=== PATIENT | male | born 1980 | race African-American/Black ===

== ENCOUNTER 2021-01-14 17:20 | Inpatient (IN) | payer OTHER, SELFPAY ==
[2021-01-14] MEDS ORDERED: HYDROmorphone 0.5 MG/0.5 ML SYRINGE ONE ×2 (17:49→17:50)
[2021-01-14] MEDS ORDERED: diphenhydrAMINE 50 MG/ML VIAL ONE (17:49)
[2021-01-14] MEDS ORDERED: Ondansetron PF 4 MG/2 ML Vial ONE ×2 (17:49→17:53)
[2021-01-14 18:51] LABS: ALT (SGPT) 17 U/L (8-55); AST (SGOT) 22 U/L (5-34); Albumin 3.9 g/dL (3.5-5.0); Alkaline Phosphatase 125 U/L (40-110); Anion Gap 15 mmol/L (10-20); BUN (Urea Nitrogen) 11 mg/dL (8.9-20.6); Bilirubin, Total 5.3 mg/dL (0.2-1.2); Calc. Creatinine Clearance 0 mL/min (70-130); Calcium 8.9 mg/dL (7.8-10.44); Carbon Dioxide 23 mmol/L (22-29); Chloride 97 mmol/L (98-107); Globulin 5.1 g/dL (2.4-3.5); Glucose 248 mg/dL (70-105); Potassium 3.2 mmol/L (3.5-5.1); Sodium 132 mmol/L (136-145)
[2021-01-14 18:52] LABS: Hemoglobin 11.1 g/dL (13.5-17.5); Mean Corpuscular HGB CONC 34.6 g/dL (32.0-36.0); Mean Corpuscular Hemoglobin 29.2 pg (27.0-33.0); Mean Corpuscular Volume 84.5 fl (81.2-95.1); Mean Platelet Volume 9.5 fl (7.4-10.4); Platelet Count 339 10x3/uL (150-450); RBC Distribution Width 16.8 % (11.5-14.5); White Blood Cell (WBC) Count 31.4 10x3/uL (3.5-10.5)
[2021-01-14] MEDS ORDERED: cefTRIAXone\\ROCEPHIN 2 GM VIAL ONE (19:05)
[2021-01-14 19:09] LABS: Band 1 % (5-11); Lymphocytes 5 % (21-51); MDiff Complete? YES; Monocytes 6 % (0-10); Neutrophil 88 % (42-75)
[2021-01-14 19:10] LABS: Anisocytosis SLIGHT = 6-15 cells (100X) (0-5/hpf); Platelet Morphology Comment Appears Adequate
[2021-01-14 19:11] LABS: Reflex for Review?? YES
[2021-01-14] MEDS ORDERED: cefTRIAXone\\ROCEPHIN 2 GM in Sodium Chloride 0.9% 100 ML IVPB SCH (19:15)
[2021-01-14] MEDS ORDERED: Vancomycin 1.5 GRAM/300 ML BAG 1.5 GM in Premix Bag 1 BAG IVPB SCH (19:15)
[2021-01-14] MEDS ORDERED: Vancomycin HCl 500 MG VIAL ONE (19:30)
[2021-01-14] MEDS ORDERED: Bisacodyl 5 MG TAB PO PRN (20:31)
[2021-01-14] MEDS ORDERED: Senokot S 8.6-50 MG TAB PO PRN (20:31)
[2021-01-14] MEDS ORDERED: Potassium Chloride 20 MEQ TAB PO SCH (20:45)
[2021-01-14] MEDS ORDERED: Vancomycin HCl 1 GM in Sodium Chloride 0.9% 250 ML 300 ML IVPB SCH (21:00)
[2021-01-14 21:17] LABS: Lactic Acid 0.8 mmol/L (0.5-2.2)
[2021-01-14] MEDS ORDERED: Lidocaine 1% (PF) 30 ML VIAL SC SCH (21:45)
[2021-01-14] MEDS: Morphine 4 MG/ML VIAL SLOW IVP PRN (21:53)
[2021-01-14] MEDS ORDERED: FLU VACC QS2020-21(6MOS UP)/PF 60 MCG/0.5 ML SYRINGE IM ONE (22:00)
[2021-01-14] MEDS: oxyCODONE 5 MG TAB PO SCH (22:57)
[2021-01-14] MEDS: Sodium Chloride 0.9% 1,000 ML IV SCH (23:13)
[2021-01-14 23:51] VITALS: BMI 25.8
[2021-01-15] MEDS: Cefepime 2 GM in Sodium Chloride 0.9% 100 ML IVPB SCH ×3 (00:55→20:35)
[2021-01-15] MEDS: oxyCODONE 5 MG TAB PO SCH ×5 (02:10→21:30)
[2021-01-15] MEDS: diphenhydrAMINE 50 MG/ML VIAL IVP PRN ×3 (02:11→20:36)
[2021-01-15] MEDS: Morphine 4 MG/ML VIAL SLOW IVP PRN ×5 (02:16→20:36)
[2021-01-15 06:16] LABS: Anion Gap 13 mmol/L (10-20); BUN (Urea Nitrogen) 13 mg/dL (8.9-20.6); Calc. Creatinine Clearance 132 mL/min (70-130); Calcium 8.6 mg/dL (7.8-10.44); Carbon Dioxide 24 mmol/L (22-29); Chloride 103 mmol/L (98-107); Glucose 126 mg/dL (70-105); Magnesium 2.1 mg/dL (1.6-2.6); Potassium 3.4 mmol/L (3.5-5.1); Sodium 137 mmol/L (136-145)
[2021-01-15 06:18] LABS: #Basophils 0.1 10x3/uL (0.0-0.2); #Eosinphils 0.2 10x3/uL (0.0-0.5); #Monocytes 2.4 10x3/uL (0.0-1.1); #Neutrophils 15.9 10x3/uL (1.5-8.4); %Basophils 0.2 % (0.0-2.0); %Eosinophils 0.7 % (0.0-6.0); %Lymphocytes 15.6 % (18.0-47.0); %Monocytes 10.8 % (0.0-10.0); %Neutrophils 71.9 % (40.0-75.0); Mean Corpuscular Hemoglobin 28.7 pg (27.0-33.0); Mean Corpuscular Volume 84.5 fl (81.2-95.1); Mean Platelet Volume 9.8 fl (7.4-10.4); Platelet Count 377 10x3/uL (150-450); RBC Distribution Width 17.2 % (11.5-14.5); Red Blood Cell (RBC) Count 3.48 10x6/uL (4.32-5.72); White Blood Cell (WBC) Count 22.1 10x3/uL (3.5-10.5)
[2021-01-15 06:31] LABS: BF Color Red; Body Fluid Source Synovial Fluid; Clarity Cloudy/Turbid (Clear); Tube # EDTA
[2021-01-15] MEDS: Sodium Chloride 0.9% 1,000 ML IV SCH ×3 (06:42→20:30)
[2021-01-15] MEDS ORDERED: Potassium Chloride 20 MEQ TAB PO SCH (07:15)
[2021-01-15] MEDS: Enoxaparin Sodium 40 MG/0.4 ML SYRINGE SC SCH (08:51)
[2021-01-15] MEDS: Potassium Chloride 20 MEQ TAB PO SCH (08:53)
[2021-01-15 08:58] LABS: SARS-CoV-2 PCR by NAA Not Detected (NotDetected)
[2021-01-15] MEDS ORDERED: VANCOMYCIN 1.25 GM/250 ML BAG IVPB SCH (09:00)
[2021-01-15] MEDS ORDERED: Prevnar 13-Val Conj/PF 0.5 ML SYRINGE IM ONE (09:00)
[2021-01-15 12:01] LABS: Hemoglobin A1c 3.5 % (4.0-6.0)
[2021-01-15] MEDS: VANCOMYCIN 1.25 GM/250 ML BAG 1.25 GM in Premix Bag 1 BAG IVPB SCH (14:43)
[2021-01-15] MEDS: Ondansetron PF 4 MG/2 ML Vial IVP PRN (17:29)
[2021-01-16] MEDS: Morphine 4 MG/ML VIAL SLOW IVP PRN ×5 (00:20→22:48)
[2021-01-16] MEDS: VANCOMYCIN 1.25 GM/250 ML BAG 1.25 GM in Premix Bag 1 BAG IVPB SCH ×2 (02:30→15:07)
[2021-01-16] MEDS: oxyCODONE 5 MG TAB PO SCH ×4 (02:40→21:22)
[2021-01-16] MEDS: diphenhydrAMINE 50 MG/ML VIAL IVP PRN ×2 (05:10→16:52)
[2021-01-16 05:59] LABS: BUN (Urea Nitrogen) 6 mg/dL (8.9-20.6); Calc. Creatinine Clearance 168 mL/min (70-130)
[2021-01-16] MEDS: Sodium Chloride 0.9% 1,000 ML IV SCH ×2 (07:25→15:06)
[2021-01-16] MEDS: Enoxaparin Sodium 40 MG/0.4 ML SYRINGE SC SCH (08:59)
[2021-01-16] MEDS: Cefepime 2 GM in Sodium Chloride 0.9% 100 ML IVPB SCH ×2 (08:59→21:24)
[2021-01-16] MEDS: Potassium Chloride 20 MEQ TAB PO SCH (08:59)
[2021-01-16] MEDS: Ondansetron PF 4 MG/2 ML Vial IVP PRN (11:08)
[2021-01-16 14:52] LABS: Vancomycin, Trough 5.8 ug/mL
[2021-01-16] MEDS: Acetaminophen 325 MG TAB PO PRN (22:49)
[2021-01-16] MEDS: Ondansetron ODT 4 MG TAB PO PRN (22:49)
[2021-01-17] MEDS: Vancomycin 1.5 GRAM/300 ML BAG 1.5 GM in Premix Bag 1 BAG IVPB SCH ×2 (02:01→14:49)
[2021-01-17] MEDS: oxyCODONE 5 MG TAB PO SCH ×4 (03:04→21:10)
[2021-01-17] MEDS: diphenhydrAMINE 50 MG/ML VIAL IVP PRN ×3 (04:25→22:51)
[2021-01-17] MEDS: Morphine 4 MG/ML VIAL SLOW IVP PRN ×5 (04:26→22:50)
[2021-01-17] MEDS: Sodium Chloride 0.9% 1,000 ML IV SCH ×3 (04:26→13:06)
[2021-01-17] MEDS: Potassium Chloride 20 MEQ TAB PO SCH (08:41)
[2021-01-17] MEDS: Enoxaparin Sodium 40 MG/0.4 ML SYRINGE SC SCH (08:43)
[2021-01-17] MEDS: Cefepime 2 GM in Sodium Chloride 0.9% 100 ML IVPB SCH (08:43)
[2021-01-17] MEDS: Ondansetron PF 4 MG/2 ML Vial IVP PRN ×2 (10:40→18:32)
[2021-01-17] MEDS ORDERED: Piperacillin/Tazobactam 3.375 GM in Sodium Chloride 0.9% 100 ML IVPB SCH (17:00)
[2021-01-17] MEDS: Acetaminophen 325 MG TAB PO PRN (21:09)
[2021-01-17] MEDS: Piperacillin/Tazobactam 3.375 GM in Sodium Chloride 0.9% 100 ML IVPB SCH (21:10)
[2021-01-17] MEDS ORDERED: Piperacillin/Tazobactam 2.25 GM in Sodium Chloride 0.9% 100 ML IVPB SCH (22:00)
[2021-01-18] MEDS: Vancomycin 1.5 GRAM/300 ML BAG 1.5 GM in Premix Bag 1 BAG IVPB SCH (01:52)
[2021-01-18] MEDS: Sodium Chloride 0.9% 1,000 ML IV SCH ×3 (01:52→23:38)
[2021-01-18] MEDS: oxyCODONE 5 MG TAB PO SCH ×4 (03:07→21:08)
[2021-01-18] MEDS: Ondansetron ODT 4 MG TAB PO PRN ×3 (04:20→18:36)
[2021-01-18] MEDS: Morphine 4 MG/ML VIAL SLOW IVP PRN ×5 (04:20→23:02)
[2021-01-18] MEDS: Piperacillin/Tazobactam 3.375 GM in Sodium Chloride 0.9% 100 ML IVPB SCH ×3 (05:16→21:07)
[2021-01-18] MEDS: Potassium Chloride 20 MEQ TAB PO SCH (09:16)
[2021-01-18] MEDS: Enoxaparin Sodium 40 MG/0.4 ML SYRINGE SC SCH (09:16)
[2021-01-18 13:26] LABS: Vancomycin, Trough 7.6 ug/mL
[2021-01-18] MEDS: VANCOMYCIN 1.75 GM/350 ML BAG 1.75 GM in Premix Bag 1 BAG IVPB SCH (14:36)
[2021-01-18] MEDS: diphenhydrAMINE 50 MG/ML VIAL IVP PRN ×2 (14:38→23:02)
[2021-01-19] MEDS: VANCOMYCIN 1.75 GM/350 ML BAG 1.75 GM in Premix Bag 1 BAG IVPB SCH ×2 (02:12→17:26)
[2021-01-19] MEDS: Sodium Chloride 0.9% 1,000 ML IV SCH ×2 (02:13→04:55)
[2021-01-19] MEDS: oxyCODONE 5 MG TAB PO SCH ×4 (03:25→20:31)
[2021-01-19] MEDS: Ondansetron ODT 4 MG TAB PO PRN (04:46)
[2021-01-19] MEDS: Piperacillin/Tazobactam 3.375 GM in Sodium Chloride 0.9% 100 ML IVPB SCH ×3 (04:46→20:32)
[2021-01-19] MEDS: Morphine 4 MG/ML VIAL SLOW IVP PRN ×4 (04:46→22:23)
[2021-01-19 06:48] LABS: #Basophils 0.1 10x3/uL (0.0-0.2); #Eosinphils 0.5 10x3/uL (0.0-0.5); #Monocytes 1.9 10x3/uL (0.0-1.1); %Basophils 0.4 % (0.0-2.0); %Eosinophils 2.9 % (0.0-6.0); %Lymphocytes 22.8 % (18.0-47.0); %Monocytes 11.4 % (0.0-10.0); Hemoglobin 7.9 g/dL (13.5-17.5); Mean Corpuscular HGB CONC 33.5 g/dL (32.0-36.0); Mean Corpuscular Hemoglobin 27.6 pg (27.0-33.0); Mean Corpuscular Volume 82.5 fl (81.2-95.1); Mean Platelet Volume 9.6 fl (7.4-10.4); Platelet Count 567 10x3/uL (150-450); RBC Distribution Width 18.4 % (11.5-14.5); Red Blood Cell (RBC) Count 2.86 10x6/uL (4.32-5.72); White Blood Cell (WBC) Count 16.4 10x3/uL (3.5-10.5)
[2021-01-19 07:07] LABS: ALT (SGPT) 12 U/L (8-55); AST (SGOT) 13 U/L (5-34); Alkaline Phosphatase 83 U/L (40-110); Anion Gap 14 mmol/L (10-20); BUN (Urea Nitrogen) 6 mg/dL (8.9-20.6); Bilirubin, Total 1.7 mg/dL (0.2-1.2); Calc. Creatinine Clearance 168 mL/min (70-130); Calcium 8.6 mg/dL (7.8-10.44); Carbon Dioxide 21 mmol/L (22-29); Chloride 107 mmol/L (98-107); Globulin 4.4 g/dL (2.4-3.5); Glucose 119 mg/dL (70-105); Potassium 3.6 mmol/L (3.5-5.1); Protein, Total 7.4 g/dL (6.0-8.3); Sodium 138 mmol/L (136-145)
[2021-01-19] MEDS: Potassium Chloride 20 MEQ TAB PO SCH (09:45)
[2021-01-19] MEDS: Enoxaparin Sodium 40 MG/0.4 ML SYRINGE SC SCH (09:45)
[2021-01-19] MEDS: diphenhydrAMINE 50 MG/ML VIAL IVP PRN ×2 (10:56→22:47)
[2021-01-20] MEDS: oxyCODONE 5 MG TAB PO SCH ×4 (03:07→21:17)
[2021-01-20] MEDS: VANCOMYCIN 1.75 GM/350 ML BAG 1.75 GM in Premix Bag 1 BAG IVPB SCH ×2 (04:37→19:19)
[2021-01-20] MEDS: Morphine 4 MG/ML VIAL SLOW IVP PRN ×2 (05:04→23:18)
[2021-01-20] MEDS: Enoxaparin Sodium 40 MG/0.4 ML SYRINGE SC SCH (08:56)
[2021-01-20] MEDS: Potassium Chloride 20 MEQ TAB PO SCH (08:56)
[2021-01-20] MEDS: Piperacillin/Tazobactam 3.375 GM in Sodium Chloride 0.9% 100 ML IVPB SCH ×2 (08:59→17:57)
[2021-01-20] MEDS: Morphine 2 MG/ML VIAL SLOW IVP PRN ×2 (11:11→17:57)
[2021-01-20] MEDS: diphenhydrAMINE 50 MG/ML VIAL IVP PRN ×2 (11:26→17:57)
[2021-01-20 16:26] LABS: Vancomycin, Trough 9.7 ug/mL
[2021-01-21] MEDS: Piperacillin/Tazobactam 3.375 GM in Sodium Chloride 0.9% 100 ML IVPB SCH ×2 (01:00→08:44)
[2021-01-21] MEDS: oxyCODONE 5 MG TAB PO SCH ×4 (03:10→20:49)
[2021-01-21] MEDS: VANCOMYCIN 1.75 GM/350 ML BAG 1.75 GM in Premix Bag 1 BAG IVPB SCH (04:50)
[2021-01-21] MEDS: Morphine 2 MG/ML VIAL SLOW IVP PRN (04:52)
[2021-01-21] MEDS: Enoxaparin Sodium 40 MG/0.4 ML SYRINGE SC SCH (08:46)
[2021-01-21] MEDS: Potassium Chloride 20 MEQ TAB PO SCH (08:46)
[2021-01-21 10:07] LABS: Hemoglobin 8.9 g/dL (13.5-17.5); Mean Corpuscular HGB CONC 33.5 g/dL (32.0-36.0); Mean Corpuscular Hemoglobin 27.9 pg (27.0-33.0); Mean Corpuscular Volume 83.4 fl (81.2-95.1); Mean Platelet Volume 9.2 fl (7.4-10.4); Platelet Count 825 10x3/uL (150-450); RBC Distribution Width 18.8 % (11.5-14.5); Red Blood Cell (RBC) Count 3.19 10x6/uL (4.32-5.72); White Blood Cell (WBC) Count 14.6 10x3/uL (3.5-10.5)
[2021-01-21 10:30] LABS: Band 1 % (5-11); Eosinophils 7 % (0-10); Lymphocytes 22 % (21-51); Monocytes 14 % (0-10); Neutrophil 56 % (42-75); Nucleated RBC 1 % (0)
[2021-01-21 10:31] LABS: MDiff Complete? YES
[2021-01-21 10:32] LABS: Anisocytosis SLIGHT = 6-15 cells (100X) (0-5/hpf); Hypochromia SLIGHT = 6-15 cells (100X) (0-5/hpf); Polychromasia SLIGHT = 2-3 cells (100X) (0-2/hpf); Target Cells MODERATE= 6-15 cells (100X) (0-1/hpf)
[2021-01-21] MEDS: diphenhydrAMINE 50 MG/ML VIAL IVP PRN ×2 (10:32→22:34)
[2021-01-21] MEDS: Morphine 4 MG/ML VIAL SLOW IVP PRN ×3 (10:32→23:09)
[2021-01-21 10:33] LABS: Elliptocytes SLIGHT = 2-5 cells (100X) (0-1/hpf); Giant Platelets SLIGHT; Large Platelets SLIGHT; Platelet Morphology Comment Appears Increased
[2021-01-21] MEDS ORDERED: VANCOMYCIN 2 GRAM/400 ML BAG 2 GM in Premix Bag 1 BAG IVPB SCH (17:00)
[2021-01-22] MEDS: oxyCODONE 5 MG TAB PO SCH ×3 (03:22→14:49)
[2021-01-22] MEDS: Morphine 2 MG/ML VIAL SLOW IVP PRN (04:50)
[2021-01-22] MEDS: Potassium Chloride 20 MEQ TAB PO SCH (08:51)
[2021-01-22] MEDS: Enoxaparin Sodium 40 MG/0.4 ML SYRINGE SC SCH (10:38)
[2021-01-22] MEDS: Morphine 4 MG/ML VIAL SLOW IVP PRN (11:35)
[2021-01-22] MEDS: diphenhydrAMINE 50 MG/ML VIAL IVP PRN (11:35)
[2021-01-22 12:27] VITALS: TEMP 97.9
[2021-01-22 13:29] VITALS: BP 160/93
== END 2021-01-22 18:39 | disposition home or self-care (01) | DRG 562 ==
LOC: CSHERS 17:20 → CSHTELE 21:09
PROVIDERS: ADMIT Family Medicine; ATTEND Internal Medicine
PROC: 0S9D3ZZ Drainage of Left Knee Joint, Percutaneous Approach (ICD-10-PCS; principal; 2021-01-14)
DX: S82.145A Nondisplaced bicondylar fracture of left tibia, initial encounter for closed fracture (principal); D57.00 Hb-SS disease with crisis, unspecified; M87.862 Other osteonecrosis, left tibia; Z20.822 Contact with and (suspected) exposure to COVID-19; Z96.642 Presence of left artificial hip joint; F17.210 Nicotine dependence, cigarettes, uncomplicated; M25.462 Effusion, left knee; E87.6 Hypokalemia; R73.9 Hyperglycemia, unspecified; D72.829 Elevated white blood cell count, unspecified; Z79.891 Long term (current) use of opiate analgesic; Z90.89 Acquired absence of other organs
CPT/HCPCS: 36415; 36416; 71045; 80048; 80053; 80202; 82274; 82565; 82945; 83036; 83605; 83735; 84145; 84157; 84520; 85007; 85025; 85027; 85046; 85060; 85652; 86140; 87040; 87070; 87205; 87635; 89051; 93005; 96374; 96375; J0692; J0696; J1170; J1200; J1650; J1956; J2001; J2270; J2405; J2543; J3370; J3490; J7050; Q0162; U0003; U0005